=== PATIENT | female | born 1970 | race Caucasian/White ===

== ENCOUNTER 2023-03-07 08:07 | Day surgery (SDC) | payer OTHER, SELFPAY ==
--- NOTE | 2023-03-06 08:44 | P.CONAN_ITS ---
Documented by User: Tianna Maciel NP 03/06/23 08:44 HPI - Anesthesia Eval Consult details Narrative: 52yo F for Colonoscopy [facility] Past Medical History Medical History Depression Hypothyroid Melanoma Ulcerative colitis Surgical History Surgical History H/O colonoscopy (~2018) H/O local excision of skin lesion H/O mastectomy History of lung biopsy Social History Social History Patient Tobacco Use Status: Never used Tobacco Use of substances other than those prescribed or required for medical reasons: No Are you DNR?: No Advance Directives: No Advance Directives Information Provided: Yes Recently lost weight without trying: No Nutrition Risks: No Nutritional Risk Meds Allergies Allergy/AdvReac Type Severity Reaction Status Date / Time No Known Allergies Allergy Verified 03/05/23 13:24 Home Medications Medication Instructions Recorded Confirmed Last Taken Type citalopram 20 mg tablet 20 mg PO DAILY 03/05/23 03/05/23 Unknown History levothyroxine 112 mcg tablet 112 mcg PO DAILY 03/05/23 03/05/23 Unknown History mesalamine 0.375 gram 1.5 g PO DAILY 03/05/23 03/05/23 Unknown History capsule,extended release 24 hr multivitamin 1 tab PO DAILY 03/05/23 03/05/23 Unknown History omega-3 fatty acids-vitamin E 1 cap DAILY 03/05/23 03/05/23 Unknown History 1,000 mg capsule Exam Exam Date and Time: March 06, 2023 0844 Assessment and Plan Assessment Anesthesia Assessment: Chart Reviewed Documented by User: Raegan Galarza MD 03/07/23 09:33 [facility] Past Medical History Medical History Depression Hypothyroid Melanoma Ulcerative colitis Surgical History Surgical History H/O colonoscopy (~2018) H/O local excision of skin lesion H/O mastectomy History of lung biopsy History of Problems with Anesthesia: No Social History Social History Patient Tobacco Use Status: Never used Tobacco Use of substances other than those prescribed or required for medical reasons: No Are you DNR?: No Advance Directives: No Advance Directives Information Provided: Yes Recently lost weight without trying: No Nutrition Risks: No Nutritional Risk Meds Allergies Allergy/AdvReac Type Severity Reaction Status Date / Time No Known Allergies Allergy Verified 03/05/23 13:24 Home Medications Medication Instructions Recorded Confirmed Last Taken Type citalopram 20 mg tablet 20 mg PO DAILY 03/05/23 03/05/23 Unknown History levothyroxine 112 mcg tablet 112 mcg PO DAILY 03/05/23 03/05/23 Unknown History mesalamine 0.375 gram 1.5 g PO DAILY 03/05/23 03/05/23 Unknown History capsule,extended release 24 hr multivitamin 1 tab PO DAILY 03/05/23 03/05/23 Unknown History omega-3 fatty acids-vitamin E 1 cap DAILY 03/05/23 03/05/23 Unknown History 1,000 mg capsule Exam Airway Mallampati Class: II TM Dist: >3cm Neck ROM: Full Loose/Missing/Broken Teeth: No Heart: RRR Lungs: CTA Assessment and Plan Final Anesthetic Review History of Problems with Anesthesia: No NPO: Yes ASA Class: II Final Preanesthetic Review: Meds/Allgs Chart Reviewed, Consent Obtained/Reviewed and Anes Risks/Benef Reviewed Patient Risk: Low Procedure Risk: Low Anesthetic Plan Anesthetic Plan: MAC: Disposition: Standard PACU
[2023-03-07 08:19] VITALS: BMI 22.0
[2023-03-07 08:26] VITALS: BP 118/70; PULSE 57; RESP 16; TEMP 36.8; O2SAT 100
[2023-03-07] MEDS: Lactated Ringers 1,000 ML 100 ML IVCONT (08:40)
--- NOTE | 2023-03-07 09:11 | MHC.SHP ---
Pre-Procedural Eval Section A Date of Service: 03/07/23 Section B Chief Complaint: Left sided colitis without complications Details of Present Illness: see H&P no changes Relevant Family History (Specify if Yes): No Relevant Social History: None Present Medications: see Short Stay Collaborative assessment Medical History: No relevant PMH History of Previous Operations: No relevant previous surgery Allergies: Allergies Allergy/AdvReac Type Severity Reaction Status Date / Time No Known Allergies Allergy Verified 03/05/23 13:24 Review of Systems Sugical H&P ROS: Negative: Constitution, Cardiovascular, Respiratory, Neurological, Psychiatric, Hem-Onc, Allergic/Immunologic, Gastrointestinal, Genitourinary, Musculoskeletal, Integumentary, Endocrine and Eyes/Ears/Nose/Throat Exam Surgical H&P Exam: Normal: HEENT, Normal: Heart, Normal: Lungs, Normal: Extremities, Normal: Abdomen, Normal: Skin and Normal: Neurological Plan Diagnosis/Plan: Unchanged I have reviewed the history and physical and performed a pertinent physical examination on my patient. No changes have occurred unless specified. Time Spent With Patient Time: Total time managing care of this patient today ____ minutes.
[2023-03-07 09:55] VITALS: BP 106/61; PULSE 71; RESP 18; TEMP 36.4; O2SAT 100
--- NOTE | 2023-03-07 10:02 | P.BOP_ITS ---
Brief Operative Note Date of Service: 03/07/23 Pre-op diagnosis: ulcerative colitis Post-op diagnosis: same Procedure: colonoscopy Surgeon: Ash De La Torre Anesthesia: MAC Was an [employer] used for this Procedure?: No Estimated blood loss (mL): 5 Pathology: other Condition: stable Disposition: PACU
[2023-03-07 10:10] VITALS: BP 113/65; PULSE 51; RESP 16; TEMP 36.4; O2SAT 100
--- NOTE | 2023-03-07 10:40 | OP_ITS ---
DATE OF SERVICE: 03/07/2023 SURGEON: Ash De La Torre MD INDICATIONS: Left-sided ulcerative colitis. PREOPERATIVE DIAGNOSIS: POSTOPERATIVE DIAGNOSIS: PROCEDURE PERFORMED: Colonoscopy to the terminal ileum with biopsy. ESTIMATED BLOOD LOSS: COMPLICATIONS: ANESTHESIA: Monitored anesthesia care. ASSISTANTS: SPECIMENS: DESCRIPTION OF PROCEDURE: A history and physical was performed. The risks and benefits of the procedure were explained to the patient. Informed consent was obtained. The patient was placed in the left lateral decubitus position. A digital rectal exam was performed and was found to be normal. Olympus pediatric video colonoscope was introduced into the rectum and advanced to the cecum without difficulty. The cecum was identified by transillumination, palpation, and identification of the ileocecal valve. Examination was performed. The scope was removed. She tolerated the procedure well and was returned to the recovery area in stable condition. FINDINGS: The terminal ileum was normal. Visualized colonic mucosa was normal. The quality of the prep was excellent. There was no evidence of active colitis throughout the colon. There was no evidence of ileitis. Biopsies were obtained in the terminal ileum and from throughout the colon approximately over 10 cm in all 4 quadrants to evaluate for any evidence of dysplasia. Retroflexed examination showed some small internal hemorrhoids. IMPRESSION: Normal colonoscopy. RECOMMENDATION: Follow up the biopsy results. Consider repeat examination in 3 years. MD ALEJANDRA Schultz/MODL / [id number] MTDD
== END 2023-03-07 10:59 | disposition home or self-care (01) ==
PROVIDERS: PCP Internal Medicine; Visit Provider Internal Medicine Gastroenterology
PROC: 0DJD8ZZ Inspection of Lower Intestinal Tract, Via Natural or Artificial Opening Endoscopic (ICD-10-PCS; CPT 45378; principal; 2023-03-07 09:20)
DX: K51.50 Left sided colitis without complications (principal); K64.8 Other hemorrhoids; E03.9 Hypothyroidism, unspecified; Z85.820 Personal history of malignant melanoma of skin; Z79.899 Other long term (current) drug therapy
CPT/HCPCS: 45380; 88305